=== PATIENT | female | born 1930 | race Caucasian/White ===

== ENCOUNTER 2018-12-09 14:48 | Inpatient (IN) | payer MEDICARE, MEDICAID ==
[~2018-12-09] VITALS: Ht 157.5 cm; Wt 49.9 kg
[~2018-12-09 14:48] MED LIST: PIPERACILLIN/TAZ 2.25G PREMIX 50 ML IV SCH
[2018-12-09] MEDS ORDERED: KETOROLAC 30MG/ML VIAL IV STA (15:35)
[2018-12-09] MEDS ORDERED: SODIUM CHLORIDE 0.9% 1,000 ML IV ONE (15:35)
[2018-12-09] MEDS ORDERED: MAGNESIUM/ALUMINUM HYDROXIDE/SIMETHICONE 30ML UDC PO STA (15:35)
[2018-12-09] MEDS ORDERED: ONDANSETRON HCL 4MG/2ML INJ IV STA ×2 (15:35→17:06)
[2018-12-09 16:15] LABS: HEMATOCRIT. 38.1 % (36.0-48.0); HEMOGLOBIN. 12.5 g/dL (12.0-16.0); MEAN CORPUSCULAR VOLUME 94.3 fL (81.0-99.0); MEAN PLATELET VOLUME 9.1 fl (7.4-10.4); PLATELET 220 x1000/uL (130-400); RED BLOOD CELL COUNT 4.04 mill/uL (4.2-5.4)
[2018-12-09 16:21] LABS: CHLORIDE 103 mEq/L (98-107); INR 1.1; PROTHROMBIN TIME 10.9 sec (9.6-11.0)
[2018-12-09 16:36] LABS: PLATELET ESTIMATE NORMAL
[2018-12-09] MEDS ORDERED: MORPHINE SULFATE 4 MG/ML CPJ (NOT FOR IM USE) IV STA (17:06)
[2018-12-09] MEDS ORDERED: CLONIDINE 0.1MG TABLET PO PRN (17:45)
[2018-12-09] MEDS ORDERED: CEFTRIAXONE 1 G PREMIX 50 ML IV ONE (17:45)
[2018-12-09] MEDS ORDERED: IPRATROPIUM/ALBUTEROL 0.5-3(2.5)MG/3ML NEB INH PRN (17:45)
[2018-12-09] MEDS ORDERED: MAGNESIUM/ALUMINUM HYDROXIDE/SIMETHICONE 30ML UDC PO PRN (17:45)
[2018-12-09] MEDS ORDERED: ACETAMINOPHEN 325MG TABLET PO PRN (17:45)
[2018-12-09] MEDS ORDERED: GUAIFENESIN 200MG/10ML SUGAR FREE UDC PO PRN (17:45)
[2018-12-09] MEDS ORDERED: TRAMADOL 50MG TABLET PO PRN (17:45)
[2018-12-09] MEDS ORDERED: MORPHINE SULFATE 2 MG/ML CPJ (NOT FOR IM USE) IV PRN (17:45)
[2018-12-09] MEDS ORDERED: ONDANSETRON HCL 4MG/2ML INJ IV PRN (17:45)
[2018-12-09] MEDS ORDERED: NITROGLYCERIN 0.4MG TABLET SL SL PRN (17:45)
[2018-12-09] MEDS ORDERED: ZOLPIDEM TARTRATE 5MG TABLET PO PRN (17:45)
[2018-12-09] MEDS ORDERED: DOCUSATE SODIUM 100MG CAPSULE PO PRN (17:45)
[2018-12-09 19:46] LABS: CLARITY URINE CLEAR (CLEAR); COLOR URINE YELLOW (YELLOW); KETONES URINE 1+ (NEGATIVE); LEUKOCYTE ESTERASE URINE 2+ (NEGATIVE); NITRITE URINE NEGATIVE (NEGATIVE); OCCULT BLOOD URINE NEGATIVE (NEGATIVE); PH URINE 5.5 (4.5-8.0); PROTEIN URINE 1+ (NEGATIVE); SPECIFIC GRAVITY URINE 1.018 (1.005-1.030)
[2018-12-09 22:08] VITALS: BP 112/58
[2018-12-09 22:14] VITALS: BP 112/58
[2018-12-09] MEDS ORDERED: OMEP10CA5 PO (23:29)
[2018-12-09] MEDS ORDERED: PRED1TAB PO (23:29)
[2018-12-10] VITALS: BP 98/51
[2018-12-10] MEDS: FAMOTIDINE 20MG TABLET PO SCH ×2 (01:01→20:00)
[2018-12-10] MEDS: PIPERACILLIN/TAZ 2.25G PREMIX 50 ML IV SCH ×4 (01:12→17:52)
[2018-12-10] MEDS: SODIUM CHLORIDE 0.9% 1,000 ML IV SCH ×3 (03:34→21:26)
[2018-12-10 04:00] VITALS: BP 118/46
[2018-12-10 06:42] LABS: HEMATOCRIT. 33.5 % (36.0-48.0); HEMOGLOBIN. 10.9 g/dL (12.0-16.0); MEAN CORPUSCULAR HEMOGLOBIN 30.6 pg (28.0-32.0); MEAN CORPUSCULAR VOLUME 93.5 fL (81.0-99.0); PLATELET 198 x1000/uL (130-400); RED BLOOD CELL COUNT 3.58 mill/uL (4.2-5.4); RED CELL DISTRIBUTION WIDTH 15.6 % (11.6-14.6)
[2018-12-10 07:04] LABS: CHLORIDE 108 mEq/L (98-107)
[2018-12-10 12:00] VITALS: BP 104/51
[2018-12-10 16:00] VITALS: BP 102/37
[2018-12-10 16:30] LABS: PLATELET ESTIMATE NORMAL
[2018-12-10 20:00] VITALS: BP 99/44
[2018-12-10] MEDS: ENOXAPARIN 40MG/0.4ML SYR SUBCUT SCH (20:01)
[2018-12-11] VITALS: BP 101/43
[2018-12-11] MEDS: PIPERACILLIN/TAZ 2.25G PREMIX 50 ML IV SCH ×5 (01:33→23:55)
[2018-12-11 04:00] VITALS: BP 108/45
[2018-12-11 08:00] VITALS: BP 123/51
[2018-12-11] MEDS: SODIUM CHLORIDE 0.9% 1,000 ML IV SCH (08:22)
[2018-12-11 12:00] VITALS: BP 106/47
[2018-12-11 14:12] LABS: HEMATOCRIT. 36.6 % (36.0-48.0); HEMOGLOBIN. 11.8 g/dL (12.0-16.0); MEAN CORPUSCULAR HEMOGLOBIN 30.4 pg (28.0-32.0); MEAN CORPUSCULAR VOLUME 94.3 fL (81.0-99.0); MEAN PLATELET VOLUME 8.9 fl (7.4-10.4); PLATELET 238 x1000/uL (130-400); RED BLOOD CELL COUNT 3.88 mill/uL (4.2-5.4)
[2018-12-11 14:19] LABS: CHLORIDE 109 mEq/L (98-107)
[2018-12-11 14:24] LABS: AMYLASE 145 IU/L (25-115)
[2018-12-11 15:32] LABS: PLATELET ESTIMATE NORMAL
[2018-12-11 16:00] VITALS: BP 150/67
[2018-12-11 20:00] VITALS: BP 140/58
[2018-12-11] MEDS: ENOXAPARIN 40MG/0.4ML SYR SUBCUT SCH (21:23)
[2018-12-11] MEDS: FAMOTIDINE 20MG TABLET PO SCH (21:23)
[2018-12-12] VITALS: BP 141/57
[2018-12-12 05:21] LABS: CA 19-9 15 U/mL (0-35); CA 27.29 < 3.5 U/mL (0.0-38.6); CANCER ANTIGEN 125 23.9 U/mL (0.0-38.1)
[2018-12-12] MEDS: PIPERACILLIN/TAZ 2.25G PREMIX 50 ML IV SCH ×3 (05:49→17:00)
[2018-12-12 08:00] VITALS: BP 116/62
[2018-12-12 11:58] VITALS: BP 146/67
[2018-12-12 12:05] LABS: BASOPHILS % 0.3 % (0.0-2.0); EOSINOPHILS % 0.3 % (0.0-5.0); HEMOGLOBIN. 10.7 g/dL (12.0-16.0); LYMPHOCYTES % 7.6 % (20.0-50.0); MEAN CORPUSCULAR HEMOGLOBIN 30.1 pg (28.0-32.0); MEAN CORPUSCULAR VOLUME 93.3 fL (81.0-99.0); MEAN PLATELET VOLUME 8.9 fl (7.4-10.4); MONOCYTES % 4.6 % (2.0-8.0); NEUTROPHILS % 87.2 % (40.0-76.0); PLATELET 208 x1000/uL (130-400); RED BLOOD CELL COUNT 3.54 mill/uL (4.2-5.4); RED CELL DISTRIBUTION WIDTH 15.4 % (11.6-14.6)
[2018-12-12 12:12] LABS: CHLORIDE 109 mEq/L (98-107)
[2018-12-12 12:16] LABS: AMYLASE 52 IU/L (25-115)
[2018-12-12 16:08] VITALS: BP 147/66
[2018-12-12] MEDS: SODIUM CHLORIDE 0.9% 1,000 ML IV SCH (16:46)
[2018-12-12 20:00] VITALS: BP 143/72
[2018-12-12] MEDS: FAMOTIDINE 20MG TABLET PO SCH (21:17)
[2018-12-12] MEDS: ENOXAPARIN 40MG/0.4ML SYR SUBCUT SCH (21:18)
[2018-12-13] VITALS: BP 140/90
[2018-12-13] MEDS: PIPERACILLIN/TAZ 2.25G PREMIX 50 ML IV SCH ×2 (00:36→05:54)
[2018-12-13] MEDS: SODIUM CHLORIDE 0.9% 1,000 ML IV SCH ×2 (02:14→11:21)
[2018-12-13 04:00] VITALS: BP 106/49
[2018-12-13 08:00] VITALS: BP 123/67
[2018-12-13] MEDS ORDERED: POTASSIUM CHLORIDE 20MEQ/PACKET PO NR (09:45)
[2018-12-13 12:00] VITALS: BP 127/65
[2018-12-13 12:04] VITALS: BP 126/65
== END 2018-12-13 12:30 | disposition home health service (06) | DRG 439 ==
LOC: ER 14:48 → EDBEDREQ 17:29 → SUPCPDRO 17:40 → 6EST 18:15 → ENRESERV 19:30
PROVIDERS: ADMIT Internal Medicine; ATTEND Internal Medicine
DX: K85.90 Acute pancreatitis without necrosis or infection, unspecified (principal); N39.0 Urinary tract infection, site not specified; M19.90 Unspecified osteoarthritis, unspecified site; H40.9 Unspecified glaucoma; Z87.440 Personal history of urinary (tract) infections
CPT/HCPCS: 36415; 74176; 74181; 76700; 80061; 82150; 83036; 86300; 86301; 86304; 93005; 93306; 93970; 97162; 97166; C1893; J0696; J1650; J1885; J2270; J2405; J2543; J7030

== ENCOUNTER 2019-07-29 08:09 | Emergency (ER) | payer MEDICARE, MEDICAID ==
[~2019-07-29] VITALS: Ht 160 cm; Wt 63.5 kg
[~2019-07-29 08:09] MED LIST changes: +OMEP10CA5 PO; -PIPERACILLIN/TAZ 2.25G PREMIX 50 ML IV SCH; +PRED1TAB PO
[2019-07-29] MEDS ORDERED: MAGNESIUM/ALUMINUM HYDROXIDE/SIMETHICONE 30ML UDC PO STA (08:51)
[2019-07-29] MEDS ORDERED: VISCOUS LIDOCAINE 2% 15 ML UDC PO STA (08:51)
[2019-07-29] MEDS ORDERED: FAMOTIDINE 20MG/2ML VIAL IV STA (08:51)
[2019-07-29] MEDS ORDERED: ONDANSETRON HCL 4MG/2ML INJ IV STA (08:51)
[2019-07-29] MEDS ORDERED: SODIUM CHLORIDE 0.9% 1,000 ML IV ONE ×2 (08:51→17:15)
[2019-07-29 09:13] LABS: BASOPHILS % 0.6 % (0.0-2.0); HEMATOCRIT. 38.9 % (36.0-48.0); HEMOGLOBIN. 12.7 g/dL (12.0-16.0); LYMPHOCYTES % 15.4 % (20.0-50.0); MEAN CORPUSCULAR HEMOGLOBIN 29.9 pg (28.0-32.0); MEAN CORPUSCULAR VOLUME 91.4 fL (81.0-99.0); MEAN PLATELET VOLUME 8.7 fl (7.4-10.4); MONOCYTES % 6.2 % (2.0-8.0); NEUTROPHILS % 76.8 % (40.0-76.0); PLATELET 232 x1000/uL (130-400); RED BLOOD CELL COUNT 4.26 mill/uL (4.2-5.4); RED CELL DISTRIBUTION WIDTH 15.5 % (11.6-14.6)
[2019-07-29 09:23] LABS: CHLORIDE 105 mEq/L (98-107)
[2019-07-29 10:52] LABS: CLARITY URINE CLEAR (CLEAR); COLOR URINE YELLOW (YELLOW); KETONES URINE NEGATIVE (NEGATIVE); LEUKOCYTE ESTERASE URINE NEGATIVE (NEGATIVE); NITRITE URINE NEGATIVE (NEGATIVE); OCCULT BLOOD URINE NEGATIVE (NEGATIVE); PH URINE 8.5 (4.5-8.0); PROTEIN URINE NEGATIVE (NEGATIVE); SPECIFIC GRAVITY URINE 1.016 (1.005-1.030); UROBILINOGEN URINE 0.2 E.U./dL (0.2-1.0)
[2019-07-29] MEDS ORDERED: IOHEXOL-300 100 ML BOTTLE ONE (12:07)
[2019-07-29] MEDS ORDERED: ACETAMINOPHEN 500MG TABLET PO ONE (17:15)
[2019-07-29 19:07] VITALS: BP 135/83
== END 2019-07-29 19:12 | disposition left against medical advice (07) ==
LOC: ER 08:10 → EDBEDREQ 12:17 → ER 19:12 → ENRESERV 19:21 → CANRESERV 19:21 → CANBEDREQ 07-30 03:00
DX: K85.90 Acute pancreatitis without necrosis or infection, unspecified (principal); R11.2 Nausea with vomiting, unspecified; Z98.890 Other specified postprocedural states; Z79.899 Other long term (current) drug therapy
CPT/HCPCS: 36415; 74177; 80053; 81003; 83690; 84484; 85025; 93005; 96361; 96374; 96375; 99284; J2405; J3490; J7030; Q9967